=== PATIENT | female | born 1965 | race Caucasian/White ===

== ENCOUNTER → 2020-03-05 | Outpatient (CLI) | payer BC ==
[~2020-03-05] MED LIST: EFFEXOR 75M75 MG/TAB PO; EFFEXOR-XR150 MG PO; FLEXERIL10 MG PO; NEXIUM 40MG40 MG PO; VALTREX1 GM PO
== END ==
LOC: MC.RAD 11:25
DX: Z12.31 Encounter for screening mammogram for malignant neoplasm of breast (principal)

== ENCOUNTER 2020-08-10 13:44 | Observation (INO) | payer BC ==
[2020-08-10] VITALS (11 sets, daily range): BP systolic 114–182; BP diastolic 61–85; PULSE 52–73; TEMP 98–98.9
[~2020-08-10] VITALS: Ht 165.1 cm; Wt 88.4 kg
[2020-08-10] MEDS ORDERED: LOTENSIN20 MG PO (14:02)
[2020-08-10] MEDS ORDERED: LIPITOR 10MG10 MG PO (14:03)
--- NOTE | 2020-08-10 14:28 | NUR ---
Patient admitted to room 322. Ambulatory to her room. Dr. Aggarwal rounded. Orders obtained. Intial, 5 page. All admission paperwork completed. Elvated blood sugar reviewed.
--- NOTE | 2020-08-10 15:43 | NUR ---
Patient to the Or with Kristina Pacu nurse
--- NOTE | 2020-08-10 17:15 | NUR ---
Patient has returned post op. Pain managed. Vss on O2. Requesting a diet pepsi, encouraged water intake to start. Lap site x3 bandaids CDI. Scds ble. Ivf to lac. Will monitor
--- NOTE | 2020-08-10 19:00 | NUR ---
Received report from MONTSERRAT Mcguire. Pt did request something for pain and was given pain medication by Shayla. Pt has been getting stand by assist to the restroom. Pt has 3 lap sites with a bandaids and they are clean dry and intact. Pt has her call light within reach.
--- NOTE | 2020-08-10 19:34 | NUR ---
[place] for pain. Patient up to the bathroom & voided. slightly dizzy & nauseated when up. Vitals remains stable.
--- NOTE | 2020-08-10 23:15 | NUR ---
Pt requested something for pain and pt was given pt medication at this time. Pt has been independent in the room. Incision sites still clean dry and intact. Pt has her call light within reach.
--- NOTE | 2020-08-11 03:15 | NUR ---
During hourly rounds pt was asked how she was doing with pain. Pt stated that she was having some pt and wanted something. At this time pt was given medication. Pt has her call light within reach.
[2020-08-11 04:26] VITALS: BP 127/69; PULSE 56; TEMP 98.7
[2020-08-11] MEDS ORDERED: NORCO 325 MG-51 TAB PO (07:09)
--- NOTE | 2020-08-11 07:13 | NUR ---
Reported off to MONTSERRTA Edge. Pt requested something for pain and was given pain medication at this time. Pt has her call light within reach. Pt is currently sitting up in bed and eating her breakfast.
[2020-08-11 07:54] VITALS: BP 137/63; PULSE 58; TEMP 98.5
--- NOTE | 2020-08-11 08:36 | NUR ---
Discharge instructions reviewed with patient, verbalized understanding. Discharged ambulatory to auto/home with spouse at [id number].
== END 2020-08-11 08:35 | disposition home or self-care (01) ==
LOC: SURG 13:44
PROVIDERS: ADMIT Surgery
DX: K35.80 Unspecified acute appendicitis (principal); R73.9 Hyperglycemia, unspecified; I10 Essential (primary) hypertension; E78.5 Hyperlipidemia, unspecified; E78.00 Pure hypercholesterolemia, unspecified; F17.210 Nicotine dependence, cigarettes, uncomplicated; Z79.899 Other long term (current) drug therapy
CPT/HCPCS: G0378; G0379; J0690; J1100; J1170; J1885; J2270; J2405; J2704; J3010; J7030